=== PATIENT | female | born 1985 | race Caucasian/White ===

== ENCOUNTER 2017-09-27 15:57 | Emergency (ER) | payer MEDICAID ==
[~2017-09-27] VITALS: Ht 162.6 cm; Wt 74.0 kg
[2017-09-27] MEDS ORDERED: SODIUM CHLORIDE 0.9% 1,000 ML IV ONE (22:45)
[2017-09-27] MEDS ORDERED: KETOROLAC 30MG/ML VIAL IV ONE (22:45)
[2017-09-28] MEDS ORDERED: LORAZEPAM 1MG TABLET PO ONE (00:15)
[2017-09-28 01:15] VITALS: BP 98/60
== END 2017-09-28 01:24 | disposition home or self-care (01) ==
LOC: ER 16:21
DX: J11.1 Influenza due to unidentified influenza virus with other respiratory manifestations (principal); F41.9 Anxiety disorder, unspecified; K21.9 Gastro-esophageal reflux disease without esophagitis
CPT/HCPCS: 71045; 87804; 93005; 96361; 96374; 99285; J1885; J7030; Z7610